=== PATIENT | male | born 1970 ===

== ENCOUNTER → 2016-11-16 | Outpatient (CLI) | payer SELFPAY ==
[2016-11-16 19:25] LABS: BASOPHIL % 0.1 % (0.0-0.2); EOSINOPHIL # 0.2 10^3/uL (0.0-0.2); EOSINOPHIL % 2.4 % (0.0-5.0); HEMATOCRIT 46.8 % (37.0-53.0); HEMOGLOBIN 15.8 g/dL (13.9-16.3); LYMPHOCYTES % 27.8 % (24.0-44.0); MEAN CELL HGB 30.3 pg (26-34); MEAN CELL HGB CONCENTRATION 33.8 g/dL (33-37); MEAN CORP VOLUME 89.7 fL (78-100); MEAN PLATELET VOLUME 10.1 fL (7.8-11.0); MONOCYTES # 0.6 10^3/uL (0.3-0.8); MONOCYTES % 8.8 % (5.0-12.0); NEUTROPHIL # 4.4 10^3/uL (1.8-7.7); NEUTROPHILS % 60.8 % (41.0-85.0); WHITE BLOOD CELL 7.2 10^3/uL (4.5-11.0)
[2016-11-16 19:38] LABS: CALCIUM 8.5 mg/dL (8.4-10.5); CARBON DIOXIDE 24.4 mmol/L (20.0-32)
== END | disposition home or self-care (01) ==
LOC: LAB 17:44
PROVIDERS: ATTEND Nurse Practitioner Family
DX: M10.9 Gout, unspecified (principal); L03.012 Cellulitis of left finger
CPT/HCPCS: 36415; 80053; 84550; 85025